=== PATIENT | male | born 2000 | race Caucasian/White ===

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

== ENCOUNTER 2024-10-31 07:51 | Emergency (ER) | payer BC ==
[~2024-10-31] VITALS: Ht 185.4 cm; Wt 84.9 kg
[2024-10-31 09:38] LABS: HEMATOCRIT 46.7 % (42.0-52.0); MEAN CORPUSCULAR HEMOGLOBIN 32.5 pg (27.0-33.0); MEAN CORPUSCULAR HGB CONC 34.3 g/dl (32.0-36.5); MEAN CORPUSCULAR VOLUME 94.7 fl (80.0-96.0); PLATELET COUNT, AUTOMATED 309 10^3/uL (150-450); RED BLOOD COUNT 4.93 10^6/uL (4.30-6.10); WHITE BLOOD COUNT 5.7 10^3/uL (4.0-10.0)
[2024-10-31 09:42] LABS: APPEARANCE, URINE CLOUDY (CLEAR); BACTERIA, URINE AUTO NEGATIVE (NEGATIVE); BILIRUBIN, URINE AUTO NEGATIVE (NEGATIVE); BLOOD, URINE BLOOD NEGATIVE (NEGATIVE); COLOR, URINE YELLOW (YELLOW); GLUCOSE, URINE (UA) AUTO NEGATIVE (NEGATIVE); KETONE, URINE AUTO NEGATIVE (NEGATIVE); LEUKOCYTE ESTERASE, URINE AUTO NEGATIVE (NEGATIVE); MUCUS, URINE SMALL (NEGATIVE); NITRITE, URINE AUTO NEGATIVE (NEGATIVE); PROTEIN, URINE AUTO 1+ mg/dL (NEGATIVE); RBC, URINE AUTO 0 /HPF (0-3); SPECIFIC GRAVITY URINE AUTO 1.024 (1.002-1.035); SQUAMOUS EPITHELIAL CELL UR AU 0 /HPF (0-6); WBC, URINE AUTO 0 /HPF (0-3)
[2024-10-31 09:57] LABS: ERYTHROCYTE SEDIMENTATION RATE 4 mm/hr (0-15)
[2024-10-31 10:08] LABS: BLOOD UREA NITROGEN 15 MG/DL (9-23); CALCIUM LEVEL 9.5 MG/DL (8.5-10.1); CARBON DIOXIDE LEVEL 29 MMOL/L (20-31); CHLORIDE LEVEL 103 MMOL/L (98-107); CREATININE FOR GFR 1.21 MG/DL (0.70-1.30); GLOMERULAR FILTRATION RATE > 60.0 (>60); GLUCOSE, FASTING 94 MG/DL (60-100); POTASSIUM SERUM 4.6 MMOL/L (3.5-5.1); SODIUM LEVEL 139 MMOL/L (136-145)
[2024-10-31 11:03] LABS: Trichomonas vaginalis (AMP) NOT DETECTED (NEGATIVE)
[2024-10-31 11:27] LABS: GC DNA AMPLIFICATION NEGATIVE (NEGATIVE)
[2024-10-31 12:51] LABS: HEPATITIS B SURFACE ANTIBODY NEGATIVE (POSITIVE)
[2024-10-31 13:04] LABS: HEPATITIS B SURFACE ANTIGEN NEGATIVE (NEGATIVE)
[2024-10-31 13:16] LABS: HIV 1&2 SCREEN NEGATIVE (NEGATIVE)
[2024-10-31 13:24] LABS: HEPATITIS C VIRUS ABY INDEX 0.02 INDEX (<0.8)
[2024-10-31 13:45] LABS: BASO % 0.7 % (0.0-1.0); EOS % 0.2 % (0.0-3.0); LYMPH # 1.1 10^3/uL (1.5-5.0); LYMPH % 19.7 % (24.0-44.0); MONO # 0.9 10^3/uL (0.0-0.8); NEUTROPHILS # 3.7 10^3/uL (1.5-8.5); NEUTROPHILS % 64.2 % (36.0-66.0)
[2024-10-31] MEDS ORDERED: VALA1TAB5 PO (13:59)
[2024-10-31] MEDS ORDERED: CEPH500C PO (13:59)
[2024-10-31 14:07] VITALS: BP 139/74; TEMP 98.8; O2SAT 100
[2024-11-03 12:57] LABS: HSV-1 DNA Detected (Not Detected); HSV-2 DNA Not Detected (Not Detected)
== END 2024-10-31 14:08 | disposition home or self-care (01) ==
LOC: M ED 07:51
DX: R59.0 Localized enlarged lymph nodes (principal); N50.9 Disorder of male genital organs, unspecified; Z79.899 Other long term (current) drug therapy; Z79.2 Long term (current) use of antibiotics